=== PATIENT | female | born 1985 | race Caucasian/White ===

== ENCOUNTER 2019-07-22 16:10 | Inpatient (IN) | payer OTHER ==
[~2019-07-22] VITALS: Ht 162.6 cm; Wt 66.7 kg
[2019-07-27] MEDS ORDERED: OXYTOCIN 30 UNITS/LACT RINGERS 500 ML IV ONE (17:49)
[2019-07-27] MEDS ORDERED: RINGERS SOLUTION,LACTATED 1,000 ML IV ONE ×2 (17:49→18:01)
[2019-07-27] MEDS ORDERED: CITRIC ACID/SODIUM CITRATE 30 ML SOLUTION UDCUP PO PRN (18:00)
[2019-07-27] MEDS ORDERED: LIDOCAINE/PF 1% 30 ML VIAL INJ PRN (18:00)
[2019-07-27] MEDS ORDERED: MINERAL OIL 30 ML UDCUP VG ONE (18:00)
[2019-07-27] MEDS ORDERED: METOCLOPRAMIDE HCL 5 MG/ML 2 ML VIAL IVP PRN (18:00)
[2019-07-27 18:20] VITALS: BP 114/71
[2019-07-27 18:25] LABS: BASOPHILS % (AUTO) 0.5 % (0.0-2.0); EOSINOPHILS % (AUTO) 0.3 % (1.0-6.0); HEMATOCRIT 41.9 % (36-46); HEMOGLOBIN 13.9 g/dL (12.0-16.0); LYMPHOCYTES # (AUTO) 1.2 K/uL (1.0-4.8); LYMPHOCYTES % (AUTO) 15.9 % (22.0-44.0); MEAN CORPUSCULAR HEMOGLOBIN 31.6 pg (26.0-34.0); MEAN CORPUSCULAR HGB CONC 33.2 G/dL (31.0-37.0); MEAN CORPUSCULAR VOLUME 95 fL (80-100); MONOCYTES # (AUTO) 0.6 K/uL (0.1-1.0); MONOCYTES % (AUTO) 7.9 % (2.0-9.0); NEUTROPHILS # (AUTO) 5.8 K/uL (1.8-7.7); NEUTROPHILS % (AUTO) 75.4 % (40.0-70.0); PLATELET COUNT (AUTO) 173 K/uL (150-450); RED CELL DISTRIBUTION WIDTH 14.7 % (11.5-14.5)
[2019-07-27] MEDS ORDERED: RINGERS SOLUTION,LACTATED 1,000 ML IV SCH (18:50)
[2019-07-27] MEDS: MISOPROSTOL 50 MCG TABLET VG SCH ×2 (19:21→23:39)
[2019-07-28] MEDS: RINGERS SOLUTION,LACTATED 1,000 ML IV SCH ×3 (00:24→18:02)
[2019-07-28] MEDS: MISOPROSTOL 50 MCG TABLET VG SCH (03:26)
[2019-07-28] MEDS ORDERED: OXYTOCIN 30 UNITS/LACT RINGERS 500 ML IV SCH (06:00)
[2019-07-28] MEDS ORDERED: ROPIVACAINE HCL/PF 0.2% 100 ML ED ONE (07:31)
[2019-07-28] MEDS ORDERED: DiphenhydrAMINE HCL 50 MG/ML VIAL IVP PRN ×2 (08:00→15:00)
[2019-07-28] MEDS ORDERED: ONDANSETRON HCL 4 MG/2 ML VIAL IVP PRN ×2 (08:00→15:00)
[2019-07-28] MEDS ORDERED: ROPIVACAINE HCL/PF 0.2% 100 ML ED PRN (08:00)
[2019-07-28] MEDS ORDERED: RINGERS SOLUTION,LACTATED 1,000 ML IV ONE (14:03)
[2019-07-28] MEDS ORDERED: OXYTOCIN 30 UNITS/LACT RINGERS 500 ML IV ONE (14:03)
[2019-07-28] MEDS ORDERED: METOCLOPRAMIDE HCL 5 MG/ML 2 ML VIAL IVP ONE (14:15)
[2019-07-28] MEDS ORDERED: OxyCODONE HCL/ACETAMINOPHEN 5-325 MG TABLET PO PRN (14:15)
[2019-07-28] MEDS ORDERED: LANOLIN 7 GM OINTMENT TP PRN (14:15)
[2019-07-28] MEDS ORDERED: CITRIC ACID/SODIUM CITRATE 30 ML SOLUTION UDCUP PO ONE (14:15)
[2019-07-28] MEDS ORDERED: MIDAZOLAM HCL 2 MG/2 ML VIAL ONE (14:21)
[2019-07-28] MEDS ORDERED: FentaNYL CITRATE-PF 100 MCG/2 ML VIAL ONE (14:21)
[2019-07-28] MEDS ORDERED: MORPHINE SULFATE/PF 1 MG/ML 10 ML AMP ONE (14:22)
[2019-07-28] MEDS ORDERED: NALOXONE HCL 0.4 MG/ML VIAL IVP PRN (15:00)
[2019-07-28] MEDS ORDERED: ACETAMINOPHEN 1000 MG/ISO-OSM 100 ML IV ONE (18:45)
[2019-07-28] MEDS ORDERED: OXYGEN THERAPY IH SCH ×2 (20:00)
[2019-07-28] MEDS: KETOROLAC TROMETHAMINE 30 MG/ML VIAL IVP SCH (21:28)
[2019-07-29] MEDS: KETOROLAC TROMETHAMINE 30 MG/ML VIAL IVP SCH (03:50)
[2019-07-29] MEDS: RINGERS SOLUTION,LACTATED 1,000 ML IV SCH (04:08)
[2019-07-29 05:38] LABS: BASOPHILS % (AUTO) 0.2 % (0.0-2.0); EOSINOPHILS % (AUTO) 0 % (1.0-6.0); LYMPHOCYTES # (AUTO) 0.9 K/uL (1.0-4.8); LYMPHOCYTES % (AUTO) 5.6 % (22.0-44.0); MEAN CORPUSCULAR HEMOGLOBIN 31.3 pg (26.0-34.0); MEAN CORPUSCULAR HGB CONC 33.3 G/dL (31.0-37.0); MEAN CORPUSCULAR VOLUME 94 fL (80-100); MONOCYTES # (AUTO) 0.9 K/uL (0.1-1.0); MONOCYTES % (AUTO) 5.4 % (2.0-9.0); NEUTROPHILS # (AUTO) 14.9 K/uL (1.8-7.7); RED BLOOD CELL COUNT(AUTO) 3.51 MIL/uL (4.00-5.20); RED CELL DISTRIBUTION WIDTH 14.5 % (11.5-14.5)
[2019-07-29 05:42] LABS: NEUTROPHILS % (AUTO) 88.8 % (40.0-70.0)
[2019-07-29] MEDS ORDERED: METOCLOPRAMIDE HCL 5 MG/ML 2 ML VIAL IVP ONE (06:01)
[2019-07-29] MEDS ORDERED: ONDANSETRON HCL 4 MG/2 ML VIAL IVP ONE (06:01)
[2019-07-29] MEDS ORDERED: KETOROLAC TROMETHAMINE 60 MG/2 ML VIAL IM ONE (06:01)
[2019-07-29] MEDS ORDERED: DEXAMETHASONE SOD PHOS 4 MG/ML VIAL IVP ONE (06:01)
[2019-07-29] MEDS ORDERED: OXYTOCIN 10 UNITS/ML VIAL IM ONE (06:01)
[2019-07-29] MEDS ORDERED: CYCLOBENZAPRINE HCL 10 MG TABLET PO PRN (06:15)
[2019-07-29 07:36] LABS: PLATELET COUNT (AUTO)-OB 128 K/uL (150-450)
[2019-07-29] MEDS ORDERED: MAGNESIUM HYDROXIDE SUSPENSION 30 ML UDCUP PO SCH (09:00)
[2019-07-29] MEDS: OxyCODONE HCL/ACETAMINOPHEN 5-325 MG TABLET PO PRN (15:31)
[2019-07-30] MEDS: OxyCODONE HCL/ACETAMINOPHEN 5-325 MG TABLET PO PRN (00:32)
[2019-07-30] MEDS: IBUPROFEN 800 MG TABLET PO PRN ×3 (00:32→16:58)
[2019-07-30] MEDS ORDERED: IBUP-2071 PO (15:52)
[2019-07-30] MEDS ORDERED: FERR-89 PO (15:54)
[2019-07-30] MEDS ORDERED: DSS100 PO (15:54)
[2019-07-30] MEDS ORDERED: PERCT PO (15:57)
== END 2019-07-30 17:05 | disposition home or self-care (01) | DRG 788 ==
LOC: 4S 07-27 17:00 → OBSVTOIN 07-27 17:00 → PREOBSVTOIN 07-27 17:56 → 4S 07-28 17:52
PROVIDERS: ADMIT Obstetrics & Gynecology; ATTEND Obstetrics & Gynecology
PROC: 10D00Z1 Extraction of Products of Conception, Low, Open Approach (ICD-10-PCS; principal; 2019-07-28)
DX: O76 Abnormality in fetal heart rate and rhythm complicating labor and delivery (principal); O77.0 Labor and delivery complicated by meconium in amniotic fluid; O69.81X0 Labor and delivery complicated by cord around neck, without compression, not applicable or unspecified; Z3A.40 40 weeks gestation of pregnancy; Z37.0 Single live birth
CPT/HCPCS: 86850; 86900; 86901; J0131; J0690; J1100; J1885; J2250; J2405; J2590; J2765; J2795; J3010; J7120